=== PATIENT | male | born 1995 | race African-American/Black ===

== ENCOUNTER 2020-09-09 16:56 | Emergency (ER) | payer OTHER ==
[2020-09-09 17:04] VITALS: BP 131/96
--- NOTE | 2020-09-09 17:09 | ED Physician Documentation ---
History of Present Illness - Stated complaint Stated Complaint: MALE - Chief complaint Chief Complaint: General - History obtained from History obtained from: Patient - History of Present Illness Timing: Today Pain level max: 0 Pain level now: 0 - Additonal information Additional information: 24 year old male presents with concern about HPV. States he had sexual intercourse with a female About 5 months ago and she thinks that she might have HPV, but is not sure. He has no symptoms. He states that he did have a small pimple on his penis a few days ago which he popped. No penile discharge. Nothing makes it better or worse Review of Systems Constitutional: denies: Fever : denies: Dysuria, Frequency, Hesitancy PD PAST MEDICAL HISTORY - Past Medical History Past Medical History: No - Past Surgical History Past Surgical History: No - Present Medications Home Medications: Ambulatory Orders Medication Instructions Recorded Confirmed No Known Home Medications 09/09/20 09/09/20 - Allergies Allergies/Adverse Reactions: Allergies Allergy/AdvReac Type Severity Reaction Status Date / Time No Known Drug Allergies Allergy Verified 09/09/20 17:00 - Living Situation Living Arrangement: reports: At home - Social History Does the pt have substance abuse?: No PD ED PE NORMAL - Vitals Vital signs reviewed: Yes - General General: Alert and oriented X 3, No acute distress, Well developed/nourished - HEENT HEENT: Moist mucous membranes - Respiratory Respiratory: No respiratory distress - Male Male : Other (Circumcised male, there is one small wound to the underside of the penis. Less than 1 mm. no verrugation. no drainage. no ulceration. mild erythema. ) - Derm Derm: Warm and dry - Neuro Neuro: Alert and oriented X 3 Results - Vitals Vitals: Vital Signs - 24 hr 09/09/20 17:00 Temperature 36.6 C Heart Rate 75 Respiratory 18 Rate Blood Pressure 131/96 H O2 Saturation 100 Oxygen O2 Source Room air PD MEDICAL DECISION MAKING - ED course Complexity details: considered differential, d/w patient ED course: Patient without symptoms of HPV. Patient will follow up with his doctor for full STD testing. If the small lesion on the underside of the penis does not go away, he will have it rechecked with his doctor. Does not appear to be STD related. Patient counseled regarding signs and symptoms for which I believe and urgent re-evaluation would be necessary. Patient with good understanding of and agreement to plan and is comfortable going home at this time This document was made in part using voice recognition software. While efforts are made to proofread this document, sound alike and grammatical errors may occur. Departure - Departure Disposition: 01 Home, Self Care Clinical Impression: STD exposure Condition: Good Instructions: STD Sx Men Teen Follow-Up: DAXA MURRAY MD [Primary Care Provider] - Within 1 week Comments: There is no approved test for HPV in males. Follow up with your doctor for further STD testing. Discharge Date/Time: 09/09/20 17:23
== END 2020-09-09 17:23 | disposition home or self-care (01) ==
LOC: ED 16:56
DX: Z20.2 Contact with and (suspected) exposure to infections with a predominantly sexual mode of transmission (principal)
CPT/HCPCS: 99281; 99284

== ENCOUNTER 2020-12-03 09:28 | Emergency (ER) | payer OTHER ==
[2020-12-03] MEDS ORDERED: BUFFERED LIDOCAINE 10 ML SYRINGE SUBQ STA (09:41)
--- NOTE | 2020-12-03 09:42 | ED Physician Documentation ---
PD HPI WOUND RECHECK - Stated complaint Stated Complaint: LT JAW SWELLING - Histroy obtained from History obtained from: Patient - Additional information Additional information: He had an ingrown hair on the left side of the neck that he noted about a week ago and then developed more of a swelling over the exterior angle of the jaw on the left. There is no associated fever. He was seen at medical yesterday and they gave him Keflex and Bactrim. Review of Systems Constitutional: denies: Fever, Chills Nose: reports: Reviewed and negative Throat: reports: Reviewed and negative Cardiac: reports: Reviewed and negative PD PAST MEDICAL HISTORY - Past Medical History Cardiovascular: None Neuro: None HEENT: None - Past Surgical History Past Surgical History: No - Present Medications Home Medications: Ambulatory Orders Medication Instructions Recorded Confirmed Sulfamethox/Trimeth 800/160 1 tablet PO BID 12/03/20 12/03/20 [Bactrim Ds] cephALEXin [Keflex] 500 mg PO Q6H 12/03/20 12/03/20 - Allergies Allergies/Adverse Reactions: Allergies Allergy/AdvReac Type Severity Reaction Status Date / Time No Known Drug Allergies Allergy Verified 12/03/20 09:43 - Social History Does the pt smoke?: No Smoking Status: Never smoker Does the pt have substance abuse?: No PD ED PE NORMAL - Vitals Vital signs reviewed: Yes - General General: Alert and oriented X 3, No acute distress - HEENT HEENT: Other (He has cystic acne and folliculitis barbae with an abscess over the mid left jaw, pointing with scant drainage.) - Neuro Neuro: Alert and oriented X 3, Normal speech - Psych Psych: Normal mood, Normal affect Results - Vitals Vitals: Vital Signs - 24 hr 12/03/20 09:38 Temperature 36.6 C Heart Rate 91 Respiratory 16 Rate Blood Pressure 147/92 H O2 Saturation 100 Oxygen O2 Source Room air - Labs Labs: Microbiology 12/03/20 09:49 Wound Culture - Preliminary Abscess Procedures - Abscess I&D (location) L face Preparation: Alcohol, Lidocaine 1% Incision: Incised with scalpel, Purulent drainage, Loculations broken, Culture obtained. No: Packed Other: Pt tolerated well, Dressing applied. No: Antibiotic prescribed (already on abx) Departure - Departure Disposition: 01 Home, Self Care Clinical Impression: Abscess Condition: Good Record reviewed to determine appropriate education?: Yes Instructions: ED Abscess IandD Comments: I think the antibiotics that the [facility] gave you (keflex and bactrim) are appropriate, but still needed an incision of the larger lesion to get it drained. We did that today and a culture is being performed and if a change in antibiotics is necessary we will call you in a few days. Return for new or worsening symptoms. [place] Forms: Activity restrictions Discharge Date/Time: 12/03/20 09:58
[2020-12-03 09:43] VITALS: BP 147/92
--- OUTSIDE RECORDS SUMMARY | 2020-12-03 09:43 | EXTERNAL MEDICAL SUMMARY RPT | Continuity of Care Document ---
:1995 Demographics Phone Unavailable Preferred Language Unknown Marital Status Unknown Mandaeism Affiliation Unknown Race Unknown Ethnic Group Unknown Author Organization [place] Address [address] [id number] Phone Social History date description facility [id number]
== END 2020-12-03 09:58 | disposition home or self-care (01) ==
LOC: ED 09:28
DX: L02.01 Cutaneous abscess of face (principal); L73.1 Pseudofolliculitis barbae; L70.0 Acne vulgaris
CPT/HCPCS: 10060; 87070; 87181; 87205